=== PATIENT | male | born 1975 | race Caucasian/White ===

== ENCOUNTER 2021-08-23 18:42 | Inpatient (IN) | payer BC, SELFPAY ==
[2021-08-23 18:59] VITALS: BMI 25.4
[2021-08-23] MEDS: acetaminophen 325 mg Tablet 650 MG PO (20:54)
[2021-08-23] MEDS: trazodone 50 mg Tablet PO (20:54)
[2021-08-23] MEDS: hyDROXYzine 25 mg Capsule 50 MG PO (20:55)
[2021-08-23 20:59] VITALS: BP 148/92; PULSE 86; RESP 17; TEMP 36.5; O2SAT 96
[2021-08-24 05:54] VITALS: BP 141/84; PULSE 72; RESP 17; TEMP 36.6; O2SAT 95
[2021-08-24 06:00] VITALS: BMI 25.4
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
[2021-08-24] MEDS: pantoprazole DR 40 mg Tablet PO (09:12)
[2021-08-24] MEDS: multivitamin therapeutic Tablet 1 TAB PO (09:12)
[2021-08-24] MEDS: gabapentin 400 mg Capsule PO ×3 (09:12→23:21)
[2021-08-24 14:00] VITALS: BP 124/74; PULSE 88; RESP 17; TEMP 36.6; O2SAT 98
[2021-08-24] MEDS: acetaminophen 325 mg Tablet 650 MG PO (14:52)
[2021-08-24] MEDS: nicotine 2 mg Gum BUCCAL ×2 (14:52→18:10)
--- NOTE | 2021-08-24 14:55 | PC.NURSE ---
Patient with c/o pain in left knee rated 10. Tylenol 650 mg po given for this.
[2021-08-24 22:00] VITALS: RESP 17
[2021-08-25 05:55] VITALS: BP 121/78; PULSE 70; RESP 17; TEMP 36.6; O2SAT 98
[2021-08-25] MEDS: acetaminophen 325 mg Tablet 650 MG PO (08:27)
[2021-08-25] MEDS: hyDROXYzine 25 mg Capsule 50 MG PO (08:27)
[2021-08-25] MEDS: multivitamin therapeutic Tablet 1 TAB PO (08:27)
[2021-08-25] MEDS: pantoprazole DR 40 mg Tablet PO (08:27)
[2021-08-25] MEDS: gabapentin 400 mg Capsule PO ×3 (08:27→20:59)
[2021-08-25] MEDS: nicotine 2 mg Gum BUCCAL ×2 (08:29→17:58)
--- NOTE | 2021-08-25 08:30 | PC.NURSE ---
PRN VISTARIL 50 MG GIVEN PO PER PT C/O STATED ANXIETY
[2021-08-25 14:00] VITALS: BP 124/78; PULSE 78; RESP 17; TEMP 36.9; O2SAT 98
--- NOTE | 2021-08-25 18:03 | P.NPUPN_ITS ---
Subjective NPU Subjective: 46y.o. MWM with hx of polysubstance abuse, admitted with suicidal ideation and psychotic disorder NOS, currently on no medication but reporting continued depressed mood. He reports history of ineffectiveness of antidepressants in the past. Phoenix reports no feelings of hopelessness but reports concern about sadness after withdrawal from crystal meth use. Patient reports periods of sobriety for as long as 4-5 years and reports being drawn back into ?everything.? by a friend. He reports that he is willing to consider psychotherapy and any options available to help with battling his relapse back to methamphetamine. Mental Status Exam MSE Comments: This is a well-nourished well-developed white male in hospital scrubs with adequate grooming and good eye contact.? No abnormal movements except for mild psychomotor retardation.? Cooperative with exam in mild distress. Speech was normal rate and volume. Mood described as upset about what I've done, affect is congruent. Thought process, organized. Thought content: patient denies suicidal or homicidal ideation, no delusions reported or noted, and denies auditory or visual hallucinations. Attention and concentration are intact and memory appeared reliable but none were formally tested. He is alert and oriented three times. Insight and judgment are limited. Impulse control is impaired. Vitals/I&O/Wt Last Vital Signs Temp 98.0 F 08/25/21 21:38 Pulse 91 08/25/21 21:38 Resp 18 08/25/21 21:38 BP 124/78 08/25/21 14:00 Pulse Ox 99 08/25/21 21:38 Weight last 48 hrs Weight 84.64 kg A&P Assessment and plan (1) Parent-child relational problem: Status: Acute (2) Partner relational problem: Status: Acute (3) Methamphetamine use disorder, severe: Status: Acute (4) Alcohol use disorder, severe, dependence: Status: Acute (5) Psychosis: Status: Acute (6) Paranoia: Status: Acute (7) Anxiety: Status: Acute Plan This is a 43-year-old white male with a long history of anxiety and addiction going back to his childhood with current methamphetamine and alcohol use disorders which led to family relational problems, legal problems and inability to return to work who presents open to continuing his current medications and exploring rehabilitation. 1.? Continue current medication. Psychoeducation provided regarding treatment options including TMS for depression, inpatient rehabilitation for methamphetamine abuse. Wellbutrin to be considered for targeting dopamine receptor deficit secondary to methamphetamine abuse. 2.? Continue every 15 minute checks for safety. 3.? Encourage individual, group and milieu therapies. 4.? Encourage sober living treatment after discharge at the highest level of care to which he is willing to commit. 1) Involuntary Hold Information 96 Hour Hold: 96 Hour Involuntary Admission: Yes 96 Hour Hold Ending Date: 07/30/21 96 Hour Hold Ending Time: 00:01 Attestations NPU Medical Necessity Statement*: Inpatient hospitalization is medically necessary and the clinically appropriate intervention at this time. We will monitor medication to make changes as indicated. Likely length of stay 3 to 5 days. Coding Level of Care Code Acute Injection Mold Tooling Technician for Yuli Rios Diagnoses Parent-child relational problem Z62.820 Partner relational problem Z63.0 Methamphetamine use disorder, severe F15.20 Alcohol use disorder, severe, dependence F10.20 Psychosis F29 Paranoia F22 Anxiety F41.9
[2021-08-25] MEDS: trazodone 50 mg Tablet PO (21:03)
[2021-08-25 21:38] VITALS: PULSE 91; RESP 18; TEMP 36.7; O2SAT 99
[2021-08-26 06:00] VITALS: BP 124/83; PULSE 68; RESP 17; TEMP 36.7; O2SAT 96
[2021-08-26] MEDS: gabapentin 400 mg Capsule PO ×3 (08:40→20:43)
[2021-08-26] MEDS: pantoprazole DR 40 mg Tablet PO (08:40)
[2021-08-26] MEDS: multivitamin therapeutic Tablet 1 TAB PO (08:40)
--- NOTE | 2021-08-26 12:00 | W.PM.NPUPNS ---
Subjective NPU Subjective: 46y.o. MWM with hx of polysubstance abuse, admitted with suicidal ideation and psychotic disorder NOS. the patient had reported that he had been using methamphetamine for the last year and reported continous daily use for 7 days prior to his hospitalization. Patient reports chronic social anxiety and reported having previous failures on naltrexone and SSRI in the past. Patient had reported continued depressed mood, low energy but reports no psychotic symptoms currently. Patient reports significant problems with use of methamphetamine with reports of needing to do anything to avoid the destruction of property and his relationship leading to his involuntary hospitlization here. Mental Status Exam MSE Comments: This is a well-nourished well-developed white male with tess complexion with adequate grooming and good eye contact.? No abnormal movements except for mild psychomotor retardation.? Cooperative with exam in mild distress. Speech was normal rate and volume. Mood is described as down. affect is congruent and restricted in range. Thought process, , linear and logical Thought content: patient denies suicidal or homicidal ideation, no delusions reported or noted, and denies auditory or visual hallucinations. Attention and concentration are intact and memory appeared reliable but none were formally tested. He is alert and oriented three times. Insight and judgment are limited. Impulse control is poor. No tics, or tremors appreciated. Vitals/I&O/Wt Last Vital Signs Temp 98.1 F 08/26/21 06:00 Pulse 68 08/26/21 06:00 Resp 17 08/26/21 06:00 BP 124/83 08/26/21 06:00 Pulse Ox 96 08/26/21 06:00 A&P Assessment and plan (1) Methamphetamine use disorder, severe: Status: Acute (2) Alcohol use disorder, severe, dependence: Status: Acute (3) Depression: Status: Acute Plan This is a 43-year-old white male with history of methamphetamine abuse and social anxiety and depressed mood with family relational problems who expressed rehabilitation. 1.? Continue current medication.? Psychoeducation provided regarding treatment options including TMS for depression, inpatient ?? ? rehabilitation for methamphetamine abuse.?Start Wellbutrin xl 150mg in am today, risks benefits of medication discussed at this aliyah. 2.? Continue every 15 minute checks for safety. 3.? Encourage individual, group and milieu therapies. 4.? Encourage sober living treatment after discharge at the highest level of care to which he is willing to commit. Involuntary Hold Information 96 Hour Hold: 96 Hour Involuntary Admission: Yes 96 Hour Hold Ending Date: 07/30/21 96 Hour Hold Ending Time: 00:01 Attestations NPU Medical Necessity Statement*: Inpatient hospitalization is medically necessary and the clinically appropriate intervention at this time. We will monitor medication to make changes as indicated.? Likely length of stay 2-3 days. Coding Level of Care Code Acute Nib Assembler for [facility] Fwd Diagnoses Methamphetamine use disorder, severe F15.20 Alcohol use disorder, severe, dependence F10.20 Depression F32.A
[2021-08-26] MEDS: buPROPion XL (24 HR) 150 mg Tablet PO (13:47)
[2021-08-26 14:00] VITALS: BP 142/92; PULSE 77; RESP 18; TEMP 36.6; O2SAT 99
[2021-08-26] MEDS: hyDROXYzine 25 mg Capsule 50 MG PO ×2 (18:42→20:43)
--- NOTE | 2021-08-26 18:42 | PC.NURSE ---
PRN VISTARIL 50 MG GIVEN PO PER PT C/O STATED ANXIETY
[2021-08-26 20:23] VITALS: BP 126/62; PULSE 57; RESP 14; TEMP 36.9; O2SAT 98
[2021-08-26] MEDS: trazodone 50 mg Tablet PO (20:44)
[2021-08-27 06:00] VITALS: BP 106/62; PULSE 68; RESP 16; TEMP 36.6; O2SAT 96
--- NOTE | 2021-08-27 08:23 | PC.NURSE ---
COOPERATIVE WITH ASSESSMENT. DENIES SI/HI AND AVH AT THIS TIME. DOES ENDORSE SOME ANXIETY OVER HIS ACTIONS PRIOR TO ADMISSION AND HAVING LEGAL CHARGES BROUGHT AGAINST HIM. PRN MEDICATION OFFERED BUT PT DECLINED. DOES REPORT PAIN TO RIGHT HAND LACERATION 08/08, MED NURSE TO GIVE TYLENOL ORDERED. PULSES TO RIGHT HAND ARE PALPABLE WITH GOOD CAP REFILL . NO S/SX OF INFECTION NOTED TO LACERATION AT THIS TIME. PT DENIES SI/HI AND AVH AT THIS TIME. SUPPORT VOICED.
[2021-08-27] MEDS: buPROPion XL (24 HR) 150 mg Tablet PO (09:20)
[2021-08-27] MEDS: acetaminophen 325 mg Tablet 650 MG PO (09:21)
[2021-08-27] MEDS: pantoprazole DR 40 mg Tablet PO (09:21)
[2021-08-27] MEDS: multivitamin therapeutic Tablet 1 TAB PO (09:21)
[2021-08-27] MEDS: gabapentin 400 mg Capsule PO ×3 (09:21→20:55)
[2021-08-27 14:00] VITALS: BP 145/72; PULSE 76; RESP 16; TEMP 36.6; O2SAT 97
[2021-08-27] MEDS: OLANZapine 5 mg ODT PO (16:07)
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
[2021-08-27 20:05] VITALS: BP 144/92; PULSE 70; RESP 18; TEMP 36.7; O2SAT 100
[2021-08-27] MEDS: trazodone 50 mg Tablet PO (20:55)
--- NOTE | 2021-08-27 21:48 | PC.NURSE ---
PRN PT REQUESTED MEDICATION TO HELP HIM SLEEP, TRAZADONE
[2021-08-28 06:00] VITALS: BP 133/79; PULSE 71; RESP 16; TEMP 36.6; O2SAT 96
--- NOTE | 2021-08-28 08:40 | PC.NURSE ---
IN DAY AREA. DENIES SI/HI AND AVH AT THIS TIME. REPORTS 8/10 RIGHT HAND PAIN DUE TO LACERATION. RIGHT HAND LAC HAS NO S/SX OF INFECTION, NO DRAINAGE. SUTURES SECURED AND IN PLACE, WELL APPROXIMATED. STATES HE HAS A CONFERENCE CALL WITH A REHAB IN [place]. SUPPORT VOICED.
[2021-08-28] MEDS: gabapentin 400 mg Capsule PO ×2 (08:54→12:26)
[2021-08-28] MEDS: acetaminophen 325 mg Tablet 650 MG PO (08:54)
[2021-08-28] MEDS: pantoprazole DR 40 mg Tablet PO (08:54)
[2021-08-28] MEDS: buPROPion XL (24 HR) 150 mg Tablet PO (08:54)
[2021-08-28] MEDS: nicotine 2 mg Gum BUCCAL ×2 (08:55→12:26)
[2021-08-28] MEDS: multivitamin therapeutic Tablet 1 TAB PO (08:55)
[2021-08-28 14:00] VITALS: BP 133/79; PULSE 71; RESP 16; TEMP 36.6; O2SAT 96
--- NOTE | 2021-08-28 15:32 | PC.NURSE ---
Address of the Pharmacy that meds will need called into for discharge. [facility] [id number], [id number]
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
[2021-08-28 16:41] VITALS: BP 133/79; PULSE 71; RESP 16; TEMP 36.6; O2SAT 96
--- NOTE | 2021-08-28 16:53 | PC.NURSE ---
SCRIPTS CALLED INTO [facility]. SEE DC PAPER WORK FOR DETAILS. LEFT WITH TO GO TO [place] TO THE [facility] FOR TREATMENT. ALL DC TEACHING COMPLETED. VERBALIZED UNDERSTANDING. LEFT WITH AL BELONGINGS. PAPER WORK SIGNED.
== END 2021-08-28 16:53 | disposition home or self-care (01) | DRG 897 ==
PROVIDERS: Admitting Provider Psychiatry & Neurology Psychiatry; Visit Provider Psychiatry & Neurology Psychiatry
DX: F15.250 Other stimulant dependence with stimulant-induced psychotic disorder with delusions (principal); F15.20 Other stimulant dependence, uncomplicated; R45.851 Suicidal ideations; F10.20 Alcohol dependence, uncomplicated; Z88.5 Allergy status to narcotic agent; F17.200 Nicotine dependence, unspecified, uncomplicated; F40.10 Social phobia, unspecified; Z63.0 Problems in relationship with spouse or partner; Z62.820 Parent-biological child conflict; F32.A Depression, unspecified
CPT/HCPCS: 97150; 97165